=== PATIENT | male | born 1960 | race Caucasian/White ===

== ENCOUNTER 2017-03-10 07:04 | Emergency (ER) | payer OTHER ==
--- NOTE | ~2017-03-10 | CT4 ---
[facility] A Service of [facility] RADIOLOGY TEXT RESULTS PATIENT: KUSHAL SHRESTHA LOCATION: [facility] : 56 UNIT #: [id number] AGE: [address]: Lefty Martin MD SEX: M ORDER DR: [id number] [facility] [address] [place], [place] [address] [id number] MR#: [id number] #: [id number] NAME: KUSHAL SHRESTHA : 1960 SEX: M STUDY DATE/TIME: 03/10/2017 8:30 UNIT: [facility] ROOM: STUDY DESCRIPTION: CT Abd and Pelv Wo Cont Attending Physician: Lefty Martin M.D. Ordering Physician: Lefty Martin M.D. Primary Care Physician: Su AlfordPBhavana MEDICAL IMAGING REPORT This report is preliminary unless electronic signature is present EXAM CT abdomen and pelvis without contrast, 03/10/2017. HISTORY Left upper quadrant abdominal pain since this morning with some nausea. History of right side kidney stones. Abdominal aortic aneurysm. Asthma. Hypertension. COMPARISON CT abdomen and pelvis with contrast, 06/28/2016. PROCEDURE 3-mm noncontrast axial images through the abdomen and pelvis. Enteric contrast was not administered. Sagittal and coronal reformatted images were obtained. FINDINGS ABDOMEN FINDINGS: There is minimal atelectasis in the left base without consolidation. Cholecystectomy changes are present. The left hepatic lobe cyst measuring little over 3 cm is unchanged from prior exam. A 2.8-cm left renal cyst unchanged. There is mild left hydronephrosis and hydroureter and mild left perinephric inflammation. A punctate 2-mm or less stone is lodged within the left ureterovesical junction. No left intrarenal calculus is seen. Suspected punctate stone in the posterior right mid kidney. Spleen, pancreas, adrenals are normal. The appendix is normal. Unopacified bowel within normal limits. PELVIS FINDINGS: Prostate gland and rectum are unremarkable. No acute osseous abnormalities are identified. [facility] A Service of [facility] RADIOLOGY TEXT RESULTS PATIENT: KUSHAL SHRESTHA [id number] 56 UNIT #: [id number] AGE: [address]: Lefty Martin MD SEX: M ORDER DR: IMPRESSION 1. Punctate stone is located within the left ureterovesical junction resulting in mild left hydronephrosis, hydroureter and perinephric inflammation. 2. Suspected punctate stone in the posterior right mid kidney. 3. Stable hepatic cyst and a left renal cyst. 4. Minimal left basilar atelectasis. 5. Cholecystectomy. Dictated by... Omayra Castro M.D. THIS IS AN ELECTRONICALLY VERIFIED REPORT Omayra Castro M.D. at 03/11/2017 2:01 PM HELENA/mirtha TD: 03/10/2017 12:13 JOB #: [id number] MEDICAL IMAGING REPORT Page 1 of 1 COPY
[~2017-03-10 07:04] MED LIST: AMLODIPINE-BENA1 CA1 PO; ASPIRIN EC81 M1 PO; CRESTOR5 MG PO; IBUPROFEN PO; LISINOPRIL20 MG PO; LORTAB 7.5-5001 TAB PO; MELOXICAM15 MG PO; PHENERGAN25 MG PO
[2017-03-10 08:14] LABS: BASOPHIL% 0.2 % (0-2.5); EOSINOPHIL% 0.2 % (0.0-7.0); HEMATOCRIT 52.1 % (38.0-50.0); HEMOGLOBIN 16.9 gm/dL (13.0-16.0); LYMPHOCYTE# 1.1 X10e3 (1.0-3.5); LYMPHOCYTE% 6.8 % (17.0-45.0); MEAN CELL VOLUME 90.1 FL (83-96); MEAN CORPUSCULAR HEMOGLOBIN 29.3 PG (28-34); MEAN CORPUSCULAR HGB CONC 32.5 g/dL (30-36); MONOCYTE# 1.2 X10e3 (0-1.0); MONOCYTE% 7.1 % (3.0-12.0); NEUTROPHIL# 14.2 X10e3 (1.5-7.1); NEUTROPHIL% 85.7 % (40-75); PLATELET COUNT 238 X10e3 (140-420); RED BLOOD COUNT 5.77 X10e (3.90-5.60); RED CELL DISTRIBUTION WIDTH 14.6 % (11.0-15.5); WHITE BLOOD COUNT 16.6 X10e3 (4.0-10.5)
[2017-03-10 08:15] LABS: DIFF IND YES
[2017-03-10 08:32] LABS: CALCIUM SERUM 9.3 mg/dL (8.4-10.2); GLOM FILT RATE Estimated 82.6 mL/min (>60)
[2017-03-10 08:43] LABS: PLATELET ESTIMATE NORMAL (NORMAL); RBC NORMAL YES
== END 2017-03-10 10:04 | disposition home or self-care (01) ==
LOC: CED 07:04
PROVIDERS: Emergency Medicine
DX: N13.2 Hydronephrosis with renal and ureteral calculous obstruction (principal); F17.200 Nicotine dependence, unspecified, uncomplicated
CPT/HCPCS: 36415; 74176; 80048; 85025; 96361; 96374; 96375; 99284; J1885; J2270; J2405